=== PATIENT | female | born 1970 | race African-American/Black ===

== ENCOUNTER 2021-12-02 10:16 | Emergency (ER) | payer OTHER ==
[~2021-12-02] VITALS: Ht 162.6 cm; Wt 90.9 kg
[2021-12-02] MEDS ORDERED: ALBUTEROL SULFATE HFA 90 MCG/PUFF 8 GM INHALER IH ONE (12:15)
[2021-12-02 12:28] LABS: COVID AG,FIA SOURCE NASOPHARYNGEAL
[2021-12-02 13:06] LABS: INFLUENZA TYPE A NEGATIVE FOR TYPE A (NEGATIVE); INFLUENZA TYPE B NEGATIVE FOR TYPE B (NEGATIVE)
[2021-12-02 14:10] VITALS: BP 130/77
== END 2021-12-02 14:50 | disposition home or self-care (01) ==
LOC: EMS 10:20
DX: U07.1 COVID-19 (principal); J98.01 Acute bronchospasm
CPT/HCPCS: 71045; 87804; 94640; 99284; J3535

== ENCOUNTER 2022-01-02 12:19 | Emergency (ER) | payer OTHER ==
[~2022-01-02] VITALS: Ht 162.6 cm; Wt 93.0 kg
[2022-01-02 15:25] VITALS: BP 106/55
== END 2022-01-02 15:38 | disposition home or self-care (01) ==
LOC: EMS 12:19
DX: T23.272A Burn of second degree of left wrist, initial encounter (principal); X10.2XXA Contact with fats and cooking oils, initial encounter; Y93.89 Activity, other specified; Y92.89 Other specified places as the place of occurrence of the external cause; Y99.8 Other external cause status
CPT/HCPCS: 99282; 99283